=== PATIENT | male | born 1975 | race Caucasian/White ===

== ENCOUNTER 2019-03-05 18:33 | Emergency (ER) | payer MEDICARE ==
[2019-03-05 19:04] LABS: ABS Basophils 0.1 10^3/ul (0-0.2); ABS Eosinophils 0.1 10^3/ul (0-0.6); ABS Lymphocytes 1.8 10^3/ul (1.0-4.8); ABS Monocytes 0.6 10^3/ul (0-0.8); ABS Neutrophils 4.7 10^3/ul (1.5-7.7); Eosinophil % 1.5 %; Hematocrit 42 % (42-52); Hemoglobin 14.5 g/dL (14.0-18.0); Lymphocyte % 24.6 %; Mean Corpuscular HGB Conc 35 g/dL (31-36); Mean Corpuscular Hemoglobin 31 pg (27-31); Mean Corpuscular Volume 89 fL (80-94); Mean Platelet Volume 7.6 fL (7.4-10.4); Nucleated Red Blood Cells % 0.4; Platelet Count 154 10^3/uL (150-450); Red Blood Count 4.71 10^6 /uL (4.18-5.48); Red Cell Distribution Width 14 % (10-15); White Blood Count 7.3 10^3/uL (3.5-10.8)
[2019-03-05 19:12] LABS: INR 1.02 (0.82-1.09)
--- NOTE | 2019-03-05 19:19 | ED ---
HPI Chest Pain - HPI Summary HPI Summary: 44 y/o male presented to [facility] with complaint of a severe left anterior CP episode as well as SOB this morning for at least a full minute. He stood up after putting down some moderately heavy objects and immediately felt severe chest pain. He has been experiencing less severe CP since this episode and also notes that he has been experiencing CP for the past 1.5-2 months that he characterizes as muscular. Some intermittent radiation of pain to his back is noted as well. CP is worsened with movement and coughing. He is able to ambulate at baseline. Patient also complains of head congestion that started as sinus drip. Cough is also noted. Patient has a Hx of [facility]HS Muscular Dystrophy. - History of Current Complaint Chief Complaint: EDChestPainROMI Time Seen by Provider: 03/05/19 18:58 Hx Obtained From: Patient Onset/Duration: Started Hours Ago, Still Present Timing: Constant, Lasting Hours Initial Severity: Severe Current Severity: Mild Pain Intensity: 3 Pain Scale Used: 0-10 Numeric Chest Pain Location: Left Anterior Chest Pain Radiates: Yes Chest Pain Radiates To:: Back Aggravating Factor(s): Exertion, Movement, Deep Breaths Associated Signs and Symptoms: Positive: Chest Pain, Shortness of Breath, Nasal Congestion - Allergy/Home Medications Allergies/Adverse Reactions: Allergies Allergy/AdvReac Type Severity Reaction Status Date / Time No Known Allergies Allergy Verified 03/05/19 18:55 Home Medications: Home Medications NK [No Home Medications Reported] 03/05/19 [History Confirmed 03/05/19] PMH/Surg Hx/FS Hx/Imm Hx Musculoskeletal History: Reports: Other Musculoskeletal History - S Muscular Dystrophy EENT History: Denies: Hx Deafness Infectious Disease History: No Infectious Disease History: Denies: Traveled Outside the [place] in Last 30 Days - Family History Known Family History: Positive: Cardiac Disease - father had [place], Respiratory Disease - grandmother and grandfather had COPD Negative: Hypertension - Social History Alcohol Use: None Substance Use Type: Reports: Marijuana Substance Use Comment - Amount & Last Used: medical Smoking Status (MU): Former Smoker Review of Systems Positive: Nasal Discharge Positive: Chest Pain Positive: Shortness Of Breath, Cough All Other Systems Reviewed And Are Negative: Yes Physical Exam - Summary Physical Exam Summary: Appearance: The patient is well-nourished in no acute distress and in no acute pain. Skin: The skin is warm and dry, and skin color reflects adequate perfusion. HEENT: The head is normocephalic and atraumatic. The pupils are equal and reactive. The conjunctivae are clear and without drainage. Nares are patent and without drainage. Mouth reveals moist mucous membranes, and the throat is without erythema and exudate. The external ears are intact. The ear canals are patent and without drainage. The tympanic membranes are intact. Neck: The neck is supple with full range of motion and non-tender. There are no carotid bruits. There is no neck vein distension. Respiratory: Chest is non-tender. Lungs are clear to auscultation but there is a decreased breath sound from the left lung. Cardiovascular: Heart is regular rate and rhythm. There is a soft systolic ejection murmur but no rub auscultated. There is no peripheral edema and pulses are symmetrical and equal. Abdomen: The abdomen is soft and non-tender. There are normal bowel sounds heard in all four quadrants and there is no organomegaly palpated. Musculoskeletal: There is no back tenderness noted. Extremities are non-tender with full range of motion. There is good capillary refill. There is no peripheral edema or calf tenderness elicited. Neurological: Patient is alert and oriented to person, place and time. The patient has symmetrical motor strength in all four extremities. Cranial nerves are grossly intact. Deep tendon reflexes are symmetrical and equal in all four extremities. Psychiatric: The patient has an appropriate affect and does not exhibit any anxiety or depression. Triage Information Reviewed: Yes Vital Signs On Initial Exam: Initial Vitals Temp Pulse Resp BP Pulse Ox 99.8 F 73 14 128/72 100 03/05/19 18:44 03/05/19 18:44 03/05/19 18:44 03/05/19 18:44 03/05/19 18:44 Vital Signs Reviewed: Yes Procedures - Sedation Patient Received Moderate/Deep Sedation with Procedure: No Diagnostics - Vital Signs Vital Signs Temp Pulse Resp BP Pulse Ox 03/05/19 18:44 99.8 F 73 14 128/72 100 - Laboratory Lab Results: Lab Results 03/05/19 Range/Units 18:58 WBC 7.3 (3.5-10.8) 10^3/uL RBC 4.71 (4.18-5.48) 10^6 /uL Hgb 14.5 (14.0-18.0) g/dL Hct 42 (42-52) % MCV 89 (80-94) fL MCH 31 (27-31) pg MCHC 35 (31-36) g/dL RDW 14 (10-15) % Plt Count 154 (150-450) 10^3/uL MPV 7.6 (7.4-10.4) fL Neut % (Auto) 64.9 % Lymph % (Auto) 24.6 % Clarke % (Auto) 8.1 % Eos % (Auto) 1.5 % Baso % (Auto) 0.9 % Absolute Neuts (auto) 4.7 (1.5-7.7) 10^3/ul Absolute Lymphs (auto) 1.8 (1.0-4.8) 10^3/ul Absolute Monos (auto) 0.6 (0-0.8) 10^3/ul Absolute Eos (auto) 0.1 (0-0.6) 10^3/ul Absolute Basos (auto) 0.1 (0-0.2) 10^3/ul Absolute Nucleated RBC 0.0 10^3/ul Nucleated RBC % 0.4 Result Diagrams: 03/05/19 18:58 03/05/19 18:58 Lab Statement: Any lab studies that have been ordered have been reviewed, and results considered in the medical decision making process. - Radiology CXR Radiology Interpretation Completed By: ED Physician Summary of Radiographic Findings: No acute process, pending official report. - EKG 1841 Cardiac Rate: NL EKG Rhythm: Sinus Rhythm Summary of EKG Findings: Normal sinus rhythm and rate of 74bpm. Non-specific changes. This EKG was reviewed and interpreted by the ED physician. Chest Pain Course/Dx - Course Course Of Treatment: Mr. Dawkins came in with an atypical chest pain that he's been having for couple of days. My initial impression was that this could be a spontaneous pneumothorax by chest x-ray was clear he was kept on a monitor and labs were obtained as well as chest x-ray and EKG. His heart score was 0 or 1 and a delayed troponin was not necessary. - Diagnoses Provider Diagnoses: Chest pain Discharge ED - Sign-Out/Discharge Documenting (check all that apply): Patient Departure - DC - Discharge Plan Condition: Stable Disposition: HOME Patient Education Materials: Chest Pain (ED), Acute Pericarditis (ED) Referrals: Care [facility] [Outside] Additional Instructions: Follow up with your Primary Care Physician in 1-3 days. If you experience new or worsening symptoms please return to the ER. - Billing Disposition and Condition Condition: STABLE Disposition: Home - Attestation Statements Document Initiated by Rolando: Yes Documenting Scribe: SEAN JORDAN Provider For Whom Scribe is Documenting (Include Credential): DIANE PITTMAN MD Scribe Attestation: ISEAN, scribed for DIANE PITTMAN MD on 03/07/19 at 1501. Scribe Documentation Reviewed: Yes Provider Attestation: The documentation as recorded by the SEAN mcclure accurately reflects the service I personally performed and the decisions made by me, DIANE PITTMAN MD Status of Scribe Document: Viewed
[2019-03-05 19:23] LABS: Albumin 4.2 g/dL (3.2-5.2); Albumin/Globulin Ratio 1.6 (1-3); BUN/Creatinine Ratio 16.2 (8-20); Calcium 9.3 mg/dL (8.6-10.3); EGFR African American 99.8 (>60); EGFR Non-African American 82.5 (>60); Globulin 2.7 g/dL (2-4); Potassium 3.9 mmol/L (3.5-5.0); Total Bilirubin 0.4 mg/dL (0.2-1.0); Total Protein 6.9 g/dL (6.4-8.9)
[2019-03-05 20:59] VITALS: BP 114/66
== END 2019-03-05 21:20 | disposition home or self-care (01) ==
LOC: ED 18:33
DX: R07.9 Chest pain, unspecified (principal); G71.02 Facioscapulohumeral muscular dystrophy; Z87.891 Personal history of nicotine dependence
CPT/HCPCS: 36415; 71046; 80053; 84484; 85025; 85379; 85610; 93005; 99283